=== PATIENT | male | born 1975 | race Caucasian/White ===

== ENCOUNTER 2019-09-17 22:24 | Inpatient (IN) | payer BC, SELFPAY ==
[2019-09-17 22:26] VITALS: BP 158/95; PULSE 126; RESP 20; TEMP 39.4; O2SAT 96; BMI 30.8
--- NOTE | 2019-09-17 22:42 | RAD_ITS ---
STUDY: X-RAY CHEST REASON FOR EXAM: Male, 43 years old. Cough and fever x 2 days TECHNIQUE: Frontal and lateral views of the chest. COMPARISON: None. FINDINGS: Normal lung volumes. Focal 8 cm opacity in the periphery of the right apex possibly with cavitary portion. This may be infiltrate or mass. CT with contrast is recommended. Lungs otherwise clear. No effusions. Normal size heart. Normal mediastinum and megan. Normal visualized pulmonary arteries. Normal visualized aortic arch and descending thoracic aorta. Normal visualized thoracic spine. Normal visualized ribs, clavicles, and shoulders. There is no demonstrated abnormality of the visualized soft tissue structures of the upper abdomen. RAD/Chest PA and Lateral IMPRESSION: 8 cm focal pulmonary opacity of the right apex possibly with cavitary portion. This may be infiltrate or mass. CT with contrast is recommended. Electronically Signed: Osmin Cintron MD at 23:34 EDT , Service support ,
--- NOTE | 2019-09-17 22:44 | ED.DCSUM_ITS ---
History of Present Illness Chief Complaint: Fever Informant: Patient Narrative: Stated he has had a cough for 6 days. Occasional productivity. No sick contacts. Finished amoxicillin a week ago for throat and ear infection given to him by urgent care. He longer has those symptoms. He denies any shortness of breath. He developed a fever yesterday. He took a fever reconstructive surgeon earlier today. Comes in for further evaluation. No coronavirus exposure. 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 Current severity is mild. Past Medical History - Allergies and Home Meds Allergies/Adverse Reactions: Allergies No Known Allergies Allergy (Verified 09/17/19 22:26) Primary Care Physician: Vishnu Singh DO [Primary Care Provider] - Prior records reviewed: Yes Past Medical History: None Surgical History: noncontributory Lives: With Family Smoking Status: Current every day smoker Alcohol: None Drugs: None Review of Systems General: Reports: Fever. Denies: Chills, Sweats Eyes: Denies: Visual changes - bilaterally, Diplopia ENT: Denies: Rhinorrhea, Sore throat Cardiovascular: Denies: Chest pain, Palpitations Respiratory: Reports: Cough. Denies: Dyspnea, Dyspnea on exertion Gastrointestinal: Denies: Abdominal pain, Nausea, Vomiting, Diarrhea, Melena, Hematochezia Genitourinary: Denies: Dysuria, Hematuria, Frequency Musculoskeletal: Denies: Back pain, Extremity Pain Skin: Denies: Rash, Wounds Neurological: Denies: Headache, Weakness, Numbness Physical Exam Vital Signs/Narrative: Vital Signs Temp Pulse Resp BP Pulse Ox 09/17/19 22:26 103.0 F H 126 H 20 H 158/95 H 96 General: Well nourished, Well developed, No Acute Distress Head: Normocephalic, Atraumatic Eyes: Perrl, EOMI ENT: Moist mucous membranes, No rhinorrhea Neck: Supple, Nontender Cardiovascular: Regular rate, Regular rhythm, No murmurs Respiratory: No distress, CTA bilaterally, Chest nontender Abdomen: Soft, Nontender, Nondistended, Normal bowel sounds Back: Nontender, Normal Inspection Extremities: Nontender, No edema Skin: Normal color, No rash Neurological: Alert, Oriented x3, Cranial nerves II-XII grossly intact, Normal Strength, Normal Sensation Psychological: Normal affect, Normal Mood Diagnostic/Tx/Re-eval - Medical Decision Making Patient is resting comfortably. Given Tylenol for his fever. Lab work and chest x-ray obtained. Coronavirus nasal swab obtained. Lab work shows a leukocytosis with left shift. Chest x-ray shows right upper lobe abscess suspected. CT with IV contrast obtained shows a large necrotic abscess in the right upper lobe of the lung. There is satellite infiltrate next to this. There is also a satellite infiltrate left upper lobe. Discussed with the radiologist. Patient given IV Unasyn for suspected lung abscess. Fever resolved with Tylenol. Patient given IV fluids. Discussed with the hospitalist ED Disposition - Plan for ED Patient: Disposition: Acute Care Hospital [facility] Diagnosis: Lung abscess, Pneumonia
[2019-09-17] MEDS: Acetaminophen 500 MG Tablet 1000 MG PO (22:57)
[2019-09-17 23:09] LABS: Absolute Lymphocyte Count 1.92 X10^3/uL (0.83-4.51); Absolute Neutrophil Count 16.2 X10^3/uL (2.0-7.7); Basophil# 0.07 X10^3/uL; Basophil% 0.4 % (0-1); Eosinophils% 0.5 % (0-5); Hematocrit 35.3 % (40-54); Hemoglobin 11.6 g/dL (13.0-16.5); Lymphocyte # 1.92 X10^3/ul (4.0); Lymphocyte % 9.8 % (19-41); Mean Corp Hgb Conc 32.9 g/dL (32-36); Mean Corpuscular Hgb 30.4 pg (27.0-32.0); Mean Corpuscular Volume 92.7 fL (80-94); Monocyte# 1.07 X10^3/uL; Monocyte% 5.5 % (0-10); NRBC Flagged by Analyzer 0 % (0-5); Neutrophil # 16.24 X10^3/uL (2.7-7.7); Neutrophil % 83.1 % (47-70); Platelet Count 540 K/mm3 (150-450); RBC Distribution Width CV 12.8 % (11.6-14.6); RBC Distribution Width SD 43.3 fl (35.1-43.9); Red Blood Count 3.81 M/mm3 (4.6-6.2); White Blood Count 19.5 K/mm3 (4.4-11.0)
[2019-09-17 23:21] LABS: Anion Gap 8 (5-15); BUN 13 mg/dL (7-18); BUN/Creat Ratio 10.7 RATIO (10-20); Calcium,Total 8.8 mg/dL (8.5-10.1); Chloride 102 mmol/L (98-107); Creatinine, Serum 1.21 mg/dL (0.70-1.30); EST Glomerular Filtration Rate 70 mL/min (>60); Est Glom Filt Rate - Afr Amer 84 mL/min (>60); Estimated Creatinine Clearance 87.29 ml/min; Glucose 200 mg/dL (74-106); Potassium 3.9 mmol/L (3.5-5.1); Sodium Level 136 mmol/L (136-145)
--- NOTE | 2019-09-17 23:58 | CT_ITS ---
We are attempting to reach an attending provider to discuss findings. An addendum with communication details will be sent when the communication is complete. STUDY: CT CHEST WITH CONTRAST REASON FOR EXAM: Male, 43 years old. FEVER, COUGH, NAUSEA, LUNG ABSCESS ON XRAY POSSIBLE RADIATION DOSAGE (If Supplied By Facility): CTDIvol = ( 16.00 ) mGy, DLP = ( 582.00 ) mGycm TECHNIQUE: Transaxial imaging was performed following intravenous administration of . Individualized dose optimization techniques were used for this CT. COMPARISON: None. FINDINGS: There is a small right pleural effusion. Emphysematous changes are present. No pneumothorax. Left upper lobe area of infiltrate. Multiple subcentimeter nodules within the right upper lobe adjacent to a large masslike lesion measuring 7.3 x 4.4 x 5 cm. There is some gas within this structure. There is a central low-attenuation collection measuring approximately 5.4 x 2.2 x 3.4 cm. The heart is within normal limits in size. There is a small pericardial effusion. Mediastinal and hilar lymph nodes measuring up to 1.1 cm in short axis. Thyroid is grossly unremarkable. Coronary artery calcifications. Aortic annular valve calcifications. No aortic aneurysm or dissection identified. Evaluation for pulmonary embolism would be limited on this study. There is no pulmonary embolism within the main pulmonary artery or right and left main pulmonary arteries. Further evaluation would be limited by bolus timing. There are multi-level degenerative changes of the thoracic spine. There is a enhancing lesion within the right hepatic lobe measuring 1.3 cm. This may represent hemangioma however recommend ultrasound for further evaluation. CT/Chest WITH Contrast IMPRESSION: There is a large necrotic appearing mass within the right upper lobe. There is a central fluid attenuation portion with gas concerning for abscess. A necrotic neoplasm cannot be excluded. Recommend further evaluation to exclude neoplastic process. There is additional infiltrate within the right upper lobe and to a lesser extent the left upper lobe. There is additional pulmonary nodules present. Again recommend a CT follow-up in 3-4 weeks to ensure resolution of these additional findings. Likely reactive mediastinal/hilar lymphadenopathy. Small right pleural effusion. Small pericardial effusion. There is a small enhancing structure within the right hepatic lobe. Incompletely characterized on this single phase study. May represent hemangioma. However ultrasound correlation is recommended. Other findings as above. Electronically Signed: Vinh Staley, at 1:32 EDT Tel , Service support ,
[2019-09-18] VITALS (8 sets, daily range): BP systolic 112–141; BP diastolic 72–82; PULSE 68–94; RESP 14–18; TEMP 37.2–38.4; O2SAT 93–97; BMI 28.9
--- NOTE | 2019-09-18 | SPU_PTH ---
PATIENT: BRUCE LLANOS LOC: ICU U#:[id number] AGE/SX: 43/M ROOM: [place] [address] RE09/18/[address]: Dr. Elias Joy MD : 1975 BED: 1 DIS: 09/19/2019 SPEC #: [id number] RECD: 09/18/19 09:09 STATUS: BAKARI REJamal #: [id number] JUAN: 09/18/19 00:[address]: Elias Joy DEPT: CYTOLOGY RECD BY: Aram Guadalupe ENTERED: 09/19/19 09:09 SP TYPE: Sputum Cy OTHR DR: DO Dr. Evelio Nielsen, MD Dr. Radhames Worrell Dr., MD Tissues: Sputum Procedures: Pap Stain (control) Special Stain Group II Special Stain Group I AFB Stain (control) Cytospin Fluid HEADER OPERATION: Not noted PRE-OP DIAGNOSIS: Pneumonia TISSUE SUBMITTED: Sputum for cytology DIAGNOSIS CYTOLOGY Sputum for cytology (smears and cytospin): Negative for malignant cells. Numerous organisms consistent with bacteria noted. Special stain for acid fast bacilli is negative for organisms; matched control is appropriate. See comment. SJ:gaurav 09/19/19 COMMENT The specimen predominantly consists of squamous cells. The specimen is limited in evaluation due to lack of histiocytes. CYTOLOGY STUDY Slides are reviewed. CYTOLOGY GROSS Received is <1 ml of yellow viscus fluid labeled with the patient's name and and designated per the requisition as sputum. Submitted for cytology preparation. / gaurav 09/19/19 TC:5 CPT: 84351, 98995
[2019-09-18] MEDS: 0.9% Normal Saline 1,000 ML 1000 ML IV ×2 (00:17→02:00)
--- NOTE | 2019-09-18 01:58 | HP.PCM_ITS ---
Problem List (1) Sepsis Status: Acute (2) Cavitary lesion of lung Status: Acute History of Present Illness Date of Admission: 09/18/19 Chief Complaint: Fever The patient is a 43 year old M with a significant history of tobacco abuse who presents emergency department with a chief complaint of fever. His temperature at home was 103.5 Fahrenheit. Associated with his symptoms is cough and nausea. His cough is productive for a pinkish sputum which he thinks may contain blood. He denies any shortness of breath. Further patient reports diaphoresis with night sweats. He denies any contacts with TB patient. Last time he traveled out of the country was about 10 years ago. At that time he traveled to the [facility]. Patient reports history of allergies 3 weeks ago for which he went to the urgent care. At that time he had bilateral ear infection; and post nasal drip. He was given antibiotics and steroids at that time. Chest x-ray was remarkable for focal pulmonary opacity with cavitary portion. Follow-up chest CT was also remarkable for large necrotic appearing mass within the right upper lobe and gas concerning for abscess. Past Medical History Medical History: Medical History (Last Updated 09/18/19 @ 06:[address] Lauri Bynum MD) Denies previous medical history Allergies No Known Allergies Allergy (Verified 09/17/19 22:26) Home Medications: Ambulatory Orders Medication Instructions Recorded NK 09/17/19 Surgical History: no surgical history Lives: With Family Smoking Status: Current every day smoker Alcohol: None Drugs: None - *Family History Maternal History Items: Hypertension Paternal History Items: Hypertension, - - Alcoholism Review of Systems Constitutional: Reports: Fever. Denies: Chills, Weight Change HEENT: Denies: Head Aches, Sinus Congestion, Sinus Drainage Cardiovascular: Denies: Chest Pain, Palpitations Respiratory: Reports: Cough, Sputum production. Denies: Shortness of breath at rest Gastrointestinal: Reports: Nausea. Denies: Abdominal Pain, Vomiting Genitourinary: Denies: Dysuria Musculoskeletal: Denies: Joint Pain, Joint Tenderness Skin: Denies: Rash, Wounds Neurological: Denies: Numbness, Tingling, Focal weakness Psychiatric: Denies: Anxiety, Depression, Homicidal Ideations, Suicidal Ideations Hematologic/ Lymphatic: Denies: Easy Bruising, Easy Bleeding VTE Information - Inpt Only VTE Present on Admission: No VTE Mechan Device Prophylaxis: None VTE Pharm Prophylaxis ordered?: Yes Patient Problems: Active and Suspected Problems Lung abscess (Acute) Pneumonia (Acute) Sepsis (Acute) Cavitary lesion of lung (Acute) - Physical Exam Vitals/I&O's: Vital Signs Temp Pulse Resp BP Pulse Ox 99.2 F H 126 H 20 H 123/81 H 97 09/18/19 00:16 09/17/19 22:26 09/17/19 22:26 09/18/19 00:16 09/18/19 00:16 Oxygen Delivery Method Room Air Weight: 103 kg Body Mass Index (BMI) 30.8 General: Alert, Oriented x3, Cooperative HEENT: Atraumatic, PERRLA, EOMI, Normocephalic Neck: Supple, No JVD, Negative Carotid Bruits Lungs: Clear to auscultation, Normal air movement Cardiovascular: Regular rate, Normal S1, Normal S2, No murmurs Abdomen: Bowel Sounds Present, Soft, Non Tender Extremities: No edema, Capillary Refill Less than 3 Seconds Skin: No rashes, No breakdown Musculoskeletal: No Tenderness to Palpation of Joints or Extremities Neurological: Cranial nerves II-XII grossly intact Psych/Mental Status: Normal Affect, Appropriate Laboratory Results 09/17/19 22:55: WBC 19.5 H, RBC 3.81 L, Hgb 11.6 L, Hct 35.3 L, MCV 92.7, MCH 30.4, MCHC 32.9, RDW Std Deviation 43.3, RDW Coeff of Rory 12.8, Plt Count 540 H, MPV 9.0, Immature Gran % (Auto) 0.700, Neut % (Auto) 83.1 H, Lymph % (Auto) 9.8 L, [place] Zandt % (Auto) 5.5, Eos % (Auto) 0.5, Baso % (Auto) 0.4, Absolute Neuts (auto) 16.2 H, Absolute Lymphs (auto) 1.92, Nucleated RBC % 0 09/17/19 22:55: Sodium 136, Potassium 3.9, Chloride 102, Carbon Dioxide 26.0, Anion Gap 8, BUN 13, Creatinine 1.21, Estim Creat Clear Calc 87.29, Est GFR (MDRD) Af Amer 84, Est GFR (MDRD) Non-Af 70, BUN/Creatinine Ratio 10.7, Glucose 200 H, Calcium 8.8 09/17/19 23:06: COVID-19 ([facility]BA) Not Detected Assessment/Plan All Active Problems Lung abscess (Acute) Pneumonia (Acute) Sepsis (Acute) Cavitary lesion of lung (Acute) The patient is a 43 year old M with a significant history of tobacco abuse who presents emergency department with a chief complaint of fever; productive cough possible containing blood; and a chest x-ray and CT chest findings of a pulmonary cavitation and abscess; also with SIRS criteria. Sepsis secondary to a cavitary lesion of the lungs. Recess criteria with a T-max of 103.5 at home and 103.0 Fahrenheit at the hospital. Heart rate of more than 90. White count of 19.5. Actual images of chest x-ray and CT of chest were reviewed. They showed large abscess. Different diagnoses include anaerobic infections; Mycobacterium infection; malignancy; Daniella's granulomatosis. We will get ANCA studies. Was given Unasyn at the emergency department. We will continue patient on Unasyn. Also add azithromycin. We will get a TB Gold and acid-fast bacilli of sputum. I will consult pulmonary status. Put in negative airflow room and institute airborne precautions. Covid test at the emergency department was negative. Chest x-ray CT chest does not look like covid Tobacco abuse Counseled Nicotine patch prescribed DVT prophylaxis Subcutaneous Lovenox. Inpatient E&M: 31618 Init Hosp L3
[2019-09-18 03:45] LABS: Absolute Lymphocyte Count 3.87 X10^3/uL (0.83-4.51); Absolute Neutrophil Count 15.6 X10^3/uL (2.0-7.7); Basophil# 0.08 X10^3/uL; Basophil% 0.4 % (0-1); Eosinophils% 0.5 % (0-5); Hemoglobin 10.9 g/dL (13.0-16.5); Lymphocyte # 3.87 X10^3/ul (4.0); Mean Corp Hgb Conc 32.1 g/dL (32-36); Mean Corpuscular Hgb 30.4 pg (27.0-32.0); Mean Corpuscular Volume 94.7 fL (80-94); Monocyte# 1.73 X10^3/uL; Monocyte% 8.1 % (0-10); NRBC Flagged by Analyzer 0 % (0-5); Neutrophil # 15.58 X10^3/uL (2.7-7.7); Neutrophil % 72.5 % (47-70); POSITIVE DIFFERENTIAL YES; Platelet Count 506 K/mm3 (150-450); RBC Distribution Width SD 44.9 fl (35.1-43.9); Red Blood Count 3.59 M/mm3 (4.6-6.2); White Blood Count 21.5 K/mm3 (4.4-11.0)
[2019-09-18 03:57] LABS: Anion Gap 9 (5-15); BUN 12 mg/dL (7-18); BUN/Creat Ratio 12.2 RATIO (10-20); Calcium,Total 8.4 mg/dL (8.5-10.1); Chloride 105 mmol/L (98-107); Creatinine, Serum 0.98 mg/dL (0.70-1.30); EST Glomerular Filtration Rate 89 mL/min (>60); Est Glom Filt Rate - Afr Amer 107 mL/min (>60); Estimated Creatinine Clearance 107.78 ml/min; Glucose 113 mg/dL (74-106); Potassium 4.1 mmol/L (3.5-5.1); Sodium Level 137 mmol/L (136-145)
[2019-09-18 04:01] LABS: International Normalized Ratio 1.3; Prothrombin Time (Protime)PT. 15.9 SECONDS (11.7-14.9)
[2019-09-18 04:03] LABS: Differential Indicated SCAN CRITERIA MET
[2019-09-18 04:26] LABS: Differential Comment SCANNED
[2019-09-18 04:43] LABS: Lactic Acid 0.5 mmol/L (0.4-1.9)
--- NOTE | 2019-09-18 06:00 | PCM.CONS.PUL ---
Reason for Consult Date of Consultation: 09/18/19 Reason for Consultation: Cavitary pneumonia History of Present Illness: The patient is a 43-year-old male, with a history as outlined below, who presented to the emergency department with complaints of a fever. The patient reports that approximately 3 weeks ago he was treated with Augmentin for 5 days for an upper respiratory infection/acute sinusitis. His symptoms subsequently improved. However, over the course of this last week, he went on to develop a fever once again, which worsened over the last 24 to 48 hours. The patient denies any recent sick contact exposure. 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 He is a smoker currently of 1 pack of cigarettes per day. He did report that he was previously coughing up purulent sputum, but this has since improved. He denies the presence of hemoptysis. The patient has never been incarcerated. He denies a history of IV drug use. He denies a history of recent travel or prior TB exposure. The patient does report that he was previously a heavy drinker and did at times have episodes where he blacked out. However, he states that he has been abstinent from alcohol for the last month. On presentation to the emergency department, the patient was noted to be febrile with a temperature of 103 ?F. He was also tachycardic and tachypneic. Laboratory evaluation revealed an elevated white blood cell count to 20,000. Platelet count was elevated to 540,000. Chemistry profile was unremarkable. Lactic acid was within normal limits. Coronavirus PCR was negative. Noncontrasted chest CT revealed a dense right upper lobe masslike consolidation with internal cavitation. The patient was subsequently placed on antimicrobials and admitted to the hospital for further management. Past Medical History Medical History: Medical History (Last Updated 09/18/19 @ 06:[address] Lauri Bynum MD) Denies previous medical history Allergies No Known Allergies Allergy (Verified 09/17/19 22:26) Home Medications: Ambulatory Orders Medication Instructions Recorded NK 09/17/19 Surgical History: noncontributory Lives: With Family Smoking Status: Current every day smoker Tobacco Use: Cigarettes Alcohol: None Drugs: None - *Family History Maternal History Items: Hypertension Paternal History Items: Hypertension, - - Alcoholism Review of Systems Constitutional: Reports: Chills, Fever, Night Sweats Eyes: Denies: Blurred vision, Double vision HEENT: Denies: Head Aches, Sinus Congestion, Sinus Drainage Cardiovascular: Denies: Chest Pain, Palpitations Respiratory: Reports: Cough, Sputum production. Denies: Hemoptysis, Shortness of Breath, Wheezing Gastrointestinal: Denies: Abdominal Pain, Nausea, Vomiting Genitourinary: Denies: Dysuria Musculoskeletal: Denies: Joint Pain, Joint Tenderness Skin: Denies: Rash, Wounds Neurological: Denies: Numbness, Tingling, Focal weakness Psychiatric: Denies: Anxiety, Depression, Homicidal Ideations, Suicidal Ideations Hematologic/ Lymphatic: Reports: Anemia Patient Problems: Active and Suspected Problems (Last Updated 09/18/19 @ 06:[address] Lauri Bynum MD) Lung abscess (Acute) Pneumonia (Acute) Sepsis (Acute) Cavitary lesion of lung (Acute) Objective: The patient's most recent lab work, culture data and imaging studies have all been personally reviewed. Blood cultures are currently pending. - Physical Exam Vitals/I&O's: Vital Signs Temp Pulse Resp BP Pulse Ox 99.1 F 72 18 136/81 H 96 09/18/19 03:15 09/18/19 03:15 09/18/19 03:15 09/18/19 03:15 09/18/19 03:15 Oxygen Delivery Method Room Air Weight: 213 lb 2.992 oz Body Mass Index (BMI) 28.9 Intake and Output for Last 24 Hours 09/16/19 09/17/19 09/18/19 23:59 23:59 23:59 Intake Total 2375.00 / 2375.00 Balance 2375.00 / 2375.00 General: Alert, Oriented x3, Cooperative, No apparent distress, - - Nontoxic in appearance HEENT: Atraumatic, PERRLA, Normocephalic Oral: Moist Mucosa Neck: Supple, No Nodes, Trachea Midline Lungs: Normal air movement, No rhonchi, No wheeze, No rales Cardiovascular: Regular rate, Regular Rhythm Abdomen: Bowel Sounds Present, Soft, Non Tender Extremities: No clubbing, No cyanosis, No edema Skin: No breakdown Musculoskeletal: No Tenderness to Palpation of Joints or Extremities, No Muscle Wasting Lymphatic: No Cervical, Supraclavicular, or Inguinal Adenopathy Neurological: Cranial nerves II-XII grossly intact, Neuro grossly intact Psych/Mental Status: Alert and oriented to time, place, person, mood and affect Labs (Last 48 Hours) 09/17/19 09/17/19 09/17/19 22:55 22:55 23:06 WBC 19.5 H RBC 3.81 L Hgb 11.6 L Hct 35.3 L MCV 92.7 MCH 30.4 MCHC 32.9 RDW Std Deviation 43.3 RDW Coeff of Rory 12.8 Plt Count 540 H MPV 9.0 Immature Gran % (Auto) 0.700 Neut % (Auto) 83.1 H Lymph % (Auto) 9.8 L Grayson % (Auto) 5.5 Eos % (Auto) 0.5 Baso % (Auto) 0.4 Absolute Neuts (auto) 16.2 H Absolute Lymphs (auto) 1.92 Nucleated RBC % 0 Differential Comment Diff Path Review PT INR Sodium 136 Potassium 3.9 Chloride 102 Carbon Dioxide 26.0 Anion Gap 8 BUN 13 Creatinine 1.21 Estim Creat Clear Calc 87.29 Est GFR (MDRD) Af Amer 84 Est GFR (MDRD) Non-Af 70 BUN/Creatinine Ratio 10.7 Glucose 200 H Hemoglobin A1c Lactic Acid Calcium 8.8 c-ANCA Antibody p-ANCA Antibody COVID-19 ([facility]BA) Not Detected MRSA (PCR) 09/18/19 09/18/19 09/18/19 03:30 03:30 03:30 WBC 21.5 H RBC 3.59 L Hgb 10.9 L Hct 34.0 L MCV 94.7 H MCH 30.4 MCHC 32.1 RDW Std Deviation 44.9 H RDW Coeff of Rory 13.0 Plt Count 506 H MPV 9.0 Immature Gran % (Auto) 0.500 Neut % (Auto) 72.5 H Lymph % (Auto) 18.0 L Grayson % (Auto) 8.1 Eos % (Auto) 0.5 Baso % (Auto) 0.4 Absolute Neuts (auto) 15.6 H Absolute Lymphs (auto) 3.87 Nucleated RBC % 0 Differential Comment SCANNED Diff Path Review May foll PT INR Sodium Potassium Chloride Carbon Dioxide Anion Gap BUN Creatinine Estim Creat Clear Calc Est GFR (MDRD) Af Amer Est GFR (MDRD) Non-Af BUN/Creatinine Ratio Glucose Hemoglobin A1c Lactic Acid 0.5 Calcium c-ANCA Antibody Pending p-ANCA Antibody Pending COVID-19 (ALBA) MRSA (PCR) 09/18/19 09/18/19 09/18/19 03:30 03:30 03:30 WBC RBC Hgb Hct MCV MCH MCHC RDW Std Deviation RDW Coeff of Rory Plt Count MPV Immature Gran % (Auto) Neut % (Auto) Lymph % (Auto) Grayson % (Auto) Eos % (Auto) Baso % (Auto) Absolute Neuts (auto) Absolute Lymphs (auto) Nucleated RBC % Differential Comment Diff Path Review PT 15.9 H INR 1.3 Sodium 137 Potassium 4.1 Chloride 105 Carbon Dioxide 23.0 Anion Gap 9 BUN 12 Creatinine 0.98 Estim Creat Clear Calc 107.78 Est GFR (MDRD) Af Amer 107 Est GFR (MDRD) Non-Af 89 BUN/Creatinine Ratio 12.2 Glucose 113 H Hemoglobin A1c Pending Lactic Acid Calcium 8.4 L c-ANCA Antibody p-ANCA Antibody COVID-19 (ALBA) MRSA (PCR) 09/18/19 03:43 WBC RBC Hgb Hct MCV MCH MCHC RDW Std Deviation RDW Coeff of Rory Plt Count MPV Immature Gran % (Auto) Neut % (Auto) Lymph % (Auto) Grayson % (Auto) Eos % (Auto) Baso % (Auto) Absolute Neuts (auto) Absolute Lymphs (auto) Nucleated RBC % Differential Comment Diff Path Review PT INR Sodium Potassium Chloride Carbon Dioxide Anion Gap BUN Creatinine Estim Creat Clear Calc Est GFR (MDRD) Af Amer Est GFR (MDRD) Non-Af BUN/Creatinine Ratio Glucose Hemoglobin A1c Lactic Acid Calcium c-ANCA Antibody p-ANCA Antibody COVID-19 (ALBA) MRSA (PCR) Pending Clinical Impression(s) from Imaging Studies Chest X-Ray 09/17/19 22:42 IMPRESSION: 8 cm focal pulmonary opacity of the right apex possibly with cavitary portion. This may be infiltrate or mass. CT with contrast is recommended. Electronically Signed: Osmin Cintron MD at 23:34 EDT , Service support , Chest CT 09/17/19 23:58 IMPRESSION: There is a large necrotic appearing mass within the right upper lobe. There is a central fluid attenuation portion with gas concerning for abscess. A necrotic neoplasm cannot be excluded. Recommend further evaluation to exclude neoplastic process. There is additional infiltrate within the right upper lobe and to a lesser extent the left upper lobe. There is additional pulmonary nodules present. Again recommend a CT follow-up in 3-4 weeks to ensure resolution of these additional findings. Likely reactive mediastinal/hilar lymphadenopathy. Small right pleural effusion. Small pericardial effusion. There is a small enhancing structure within the right hepatic lobe. Incompletely characterized on this single phase study. May represent hemangioma. However ultrasound correlation is recommended. Other findings as above. Electronically Signed: Vinh Staley, at 1:32 EDT Tel , Service support , ADDENDUM: 09/18/19 0143 IMPRESSION: There is a large necrotic appearing mass within the right upper lobe. There is a central fluid attenuation portion with gas concerning for abscess. A necrotic neoplasm cannot be excluded. Recommend further evaluation to exclude neoplastic process. There is additional infiltrate within the right upper lobe and to a lesser extent the left upper lobe. There is additional pulmonary nodules present. Again recommend a CT follow-up in 3-4 weeks to ensure resolution of these additional findings. Likely reactive mediastinal/hilar lymphadenopathy. Small right pleural effusion. Small pericardial effusion. There is a small enhancing structure within the right hepatic lobe. Incompletely characterized on this single phase study. May represent hemangioma. However ultrasound correlation is recommended. Other findings as above. N.B. : The above information has been verbally conveyed by Vinh Staley to Elias Bradford MD, on 09/18/2019 01:36:03 (ET). Electronically Signed: Vinh Staley, at 1:32 EDT Tel , Service support , Current Medications Acetaminophen (Tylenol) 650 mg PO Q6H PRN PRN PRN Reason: Pain Score 1-10/Temp > 100.7 F Albuterol Sulfate (Ventolin Aerosols) 2.5 mg INHALATION Q2H PRN PRN PRN Reason: Shortness of Breath/Wheezing Dextrose (D50w Syringe) 0 gm IV X1 PRN; Protocol PRN Reason: Hypoglycemia Enoxaparin Sodium (Lovenox) 40 mg SC DAILY [facility] Glucagon () 1 mg IM .X1 PRN PRN Reason: Hypoglycemia Guaifenesin (Mucinex) 1,200 mg PO BID [facility] Ampicillin Sodium/Sulbactam (Sodium 3 gm/ Sodium Chloride) 112 mls @ 150 mls/hr IV Q6 [facility] Last Admin: 09/18/19 05:12 Dose: 150 mls/hr Documented by: Azithromycin 500 mg/ Dextrose 255 mls @ 250 mls/hr IV Q24 [facility] Last Infusion: 09/18/19 04:41 Dose: Infused Documented by: Sodium Chloride () 250 mls @ 15 mls/hr IV .[id number] PRN PRN Reason: Saline Flush Last Infusion: 09/18/19 05:12 Dose: 0 mls/hr Documented by: Sodium Chloride () 250 mls @ 15 mls/hr IV .[id number] PRN PRN Reason: Additional IVPB Infusion Melatonin (Melatonin) 3 mg PO QHS PRN PRN PRN Reason: INSOMNIA Nicotine (Nicoderm Cq (Pbkc)) 21 mg TRANSDERM. DAILY [facility] Last Admin: 09/18/19 03:54 Dose: 21 mg Documented by: Ondansetron HCl (Zofran) 4 mg IV Q8H PRN PRN PRN Reason: NAUSEA/VOMITING Sodium Chloride () 10 - 40 ml IV UD PRN PRN Reason: SALINE FLUSH Assessment/Plan All Active Problems (Last Updated 09/18/19 @ 06:[address] Lauri Bynum MD) Lung abscess (Acute) Pneumonia (Acute) Sepsis (Acute) Cavitary lesion of lung (Acute) RECOMMENDATIONS: 1. Recommend empiric broad-spectrum antimicrobial coverage for now. 2. Obtain and send sputum for culture, if feasible. 3. Continue as needed bronchodilator therapy. 4. Obtain infectious diseases consultation. 5. Recommend repeat chest imaging be completed after the patient has finished his antibiotic treatment course. 6. Outpatient pulmonary follow-up is strongly recommended. IMPRESSIONS: 1. Sepsis secondary to cavitary pneumonia The patient presented to the hospital with a one-week course of fevers and cough productive of sputum. Subsequent chest imaging did reveal evidence of a right upper lobe cavitary consolidation. The patient has no high risk TB risk factors. However, the patient was placed in precautions by the admitting hospitalist and sputum for AFB were ordered. The patient does report a history of alcohol dependency, but states that he has been abstinent for approximately 1 month. It is certainly plausible that the right upper lobe changes are related to aspiration in the setting of the patient's history of alcohol dependency. Malignancy would also be another consideration, in light of the patient's smoking history. At this time, I would recommend continued empiric antimicrobials. Infectious diseases should be consulted to assist with antimicrobial management and duration of treatment. I suspect the patient will likely require a prolonged treatment course. I would suggest that after completing his antibiotic treatment course that repeat chest imaging be obtained. If the lesion itself is not improving, consideration can be given to biopsy. 2. History of tobacco dependency/prior alcohol dependency The patient does have an extensive smoking history along with a prior history of alcohol dependency. The patient reports that he has been abstinent from alcohol for approximately 1 month. The patient will be continued on nicotine replacement therapy while admitted to the hospital. I personally spent 5 minutes discussing the deleterious effects of continued tobacco use with the patient, including modalities which could be utilized to achieve a smoke-free lifestyle. This note was generated with [employer] dictation software. It may contain incorrect words, spelling, and punctuation that were not noted in checking the note before signing. Inpatient E&M: 85860 Init Hosp L3 - Behavior Interventions Behavior Intervention: 07145 Smoking Cessation 3-10 min
[2019-09-18 07:04] LABS: Acid Fast Stain SEE PATHOLOGY REPORT
[2019-09-18 07:15] LABS: M R Staph aureus DNA By PCR Negative (Negative); Probe Check PASS; Specimen Processing Control PASS
[2019-09-18] MEDS: Enoxaparin 40 MG/0.4 ML Syringe SC (08:37)
[2019-09-18 08:52] LABS: Hemoglobin A1c 5.9 % (3.8-5.6)
[2019-09-18] MEDS: Acetaminophen 325 MG Tablet 650 MG PO ×2 (09:36→16:56)
[2019-09-18] MEDS: guaiFENesin 1,200 MG Tablet 1200 MG PO ×2 (09:36→21:05)
--- NOTE | 2019-09-18 15:11 | PCM.RX.CS ---
Consult Pharmacy has been consulted to manage selected antiobiotic: Vancomycin Type of Consult: New start Suspected Infection: Sepsis, Pneumonia Prior Doses of Antibiotics Received/Current Regimen: Loading dose of 2gm iv given 09.18.19 @0837. Labs: Sodium 137 mmol/L (136-145) 09/18/19 03:30 Potassium 4.1 mmol/L (3.5-5.1) 09/18/19 03:30 Chloride 105 mmol/L (98-107) 09/18/19 03:30 Carbon Dioxide 23.0 mmol/L (21.0-32.0) 09/18/19 03:30 Anion Gap 9 (5-15) 09/18/19 03:30 BUN 12 mg/dL (7-18) 09/18/19 03:30 Creatinine 0.98 mg/dL (0.70-1.30) 09/18/19 03:30 Est GFR (MDRD) Af Amer 107 mL/min (>60) 09/18/19 03:30 Est GFR (MDRD) Non-Af 89 mL/min (>60) 09/18/19 03:30 BUN/Creatinine Ratio 12.2 RATIO (10-20) 09/18/19 03:30 Glucose 113 mg/dL (74-106) H 09/18/19 03:30 Microbiology: Microbiology 09/18/19 06:45 Sputum, Expectorated/Coughed Gram Stain - Final 09/18/19 06:50 Urine, Random Streptococcus pneumoniae Antigen (M - Final 09/18/19 06:50 Urine, Random Legionella Antigen - Final Weight used for dosin kg Estimated Creatinine Clearance: >100ml/min Goal Trough: 15-20 mcg/mL Pharmacy Plan for Drug Dosing: Will begin 1250mg iv q8h starting 8 hrs aft loading dose of 2g. Goal trough will be 15-20mcg/ml. Trough level ordered for 09.19.19 @0730 before 4th total dose of vancomycin. Pharmacy Service will continue to monitor and adjust dosing as required. Follow-Up Labs: Trough Vancomycin - 09.18. @0730 before 0800 dose
[2019-09-19 01:01] VITALS: BP 122/73; PULSE 92; RESP 18; TEMP 38.3; O2SAT 98
[2019-09-19] MEDS: Acetaminophen 325 MG Tablet 650 MG PO ×2 (01:01→13:48)
[2019-09-19 04:55] VITALS: BP 121/86; PULSE 87; RESP 16; TEMP 37.9; O2SAT 97
--- NOTE | 2019-09-19 06:24 | PCM.PN.PUL ---
Patient Problems: Active and Suspected Problems (Last Updated 09/18/19 @ 06:[address] Lauri Bynum MD) Lung abscess (Acute) Pneumonia (Acute) Sepsis (Acute) Cavitary lesion of lung (Acute) Subjective: Patient did okay overnight. Patient is reporting subjective improvement in overall condition. Patient states his cough is less productive and he feels like he has more energy today. Patient is denying any chest pain. Patient did spike a fever overnight, but is tolerated room air and has remained hemodynamically stable. Patient does remain in TB precautions. - Physical Exam Vitals/I&O's: Vital Signs Temp Pulse Resp BP Pulse Ox 37.9 C H 87 16 121/86 H 97 09/19/19 04:55 09/19/19 04:55 09/19/19 04:55 09/19/19 04:55 09/19/19 04:55 Oxygen Delivery Method Room Air Weight: 96.7 kg Body Mass Index (BMI) 28.9 Intake and Output for Last 24 Hours 09/17/19 09/18/19 09/19/19 23:59 23:59 23:59 Intake Total 4179.50 / 4554.50 1164.5 / 1164.5 Output Total 300 / 300 Balance 3879.50 / 4254.50 1164.5 / 1164.5 General: Alert, Oriented x3, Cooperative, No apparent distress, Well developed, Well nourished, - - No conversational dyspnea. HEENT: Atraumatic, PERRLA, EOMI, Normocephalic, - - No scleral icterus or injection noted Oral: Moist Mucosa, No Gingival or Mucosal Lesions/ Ulcerations, - - Fair dentition Neck: Supple, No JVD, No Nodes, Trachea Midline Lungs: No rhonchi, No wheeze, No rales, Diminished Cardiovascular: Regular rate, Regular Rhythm, Normal S1, Normal S2, No murmurs, No rub noted, No Gallop Abdomen: Bowel Sounds Present, Soft, Non Tender, Non-Distended Extremities: No clubbing, No cyanosis, No edema, Capillary Refill Less than 3 Seconds Skin: No rashes, No breakdown Musculoskeletal: No Tenderness to Palpation of Joints or Extremities Lymphatic: No Cervical, Supraclavicular, or Inguinal Adenopathy Neurological: Cranial nerves II-XII grossly intact, Neuro grossly intact, Motor Exam 5/5 strength throughout Psych/Mental Status: Alert and oriented to time, place, person, mood and affect Microbiology Past 72 Hours 09/18/19 06:45 Sputum, Expectorated/Coughed Gram Stain - Final 09/18/19 06:50 Urine, Random Streptococcus pneumoniae Antigen (M - Final 09/18/19 06:50 Urine, Random Legionella Antigen - Final Laboratory Results 09/18/19 03:30: Hemoglobin A1c 5.9 H 09/18/19 03:43: MRSA (PCR) Negative 09/18/19 06:45: Acid Fast Stain Pending Current Medications Acetaminophen (Tylenol) 650 mg PO Q6H PRN PRN PRN Reason: Pain Score 1-10/Temp > 100.7 F Last Admin: 09/19/19 01:01 Dose: 650 mg Documented by: Albuterol Sulfate (Ventolin Aerosols) 2.5 mg INHALATION Q2H PRN PRN PRN Reason: Shortness of Breath/Wheezing Dextrose (D50w Syringe) 0 gm IV X1 PRN; Protocol PRN Reason: Hypoglycemia Enoxaparin Sodium (Lovenox) 40 mg SC DAILY [facility] Last Admin: 09/18/19 08:37 Dose: 40 mg Documented by: Glucagon () 1 mg IM .X1 PRN PRN Reason: Hypoglycemia Guaifenesin (Mucinex) 1,200 mg PO BID [facility] Last Admin: 09/18/19 21:05 Dose: 1,200 mg Documented by: Sodium Chloride () 250 mls @ 15 mls/hr IV .[id number] PRN PRN Reason: Saline Flush Last Infusion: 09/19/19 03:19 Dose: Infused Documented by: Sodium Chloride () 250 mls @ 15 mls/hr IV .[id number] PRN PRN Reason: Additional IVPB Infusion Vancomycin IV Pharmacy to Dose (1 ea/ Sodium Chloride) 500 mls @ 250 mls/hr IV X1 PRN; Protocol PRN Reason: Rx to Dose Piperacillin Sod/Tazobactam (Sod 3.375 gm/ Sodium Chloride) 50 mls @ 12.5 mls/hr IV Q8 [facility] Last Admin: 09/19/19 04:57 Dose: 12.5 mls/hr Documented by: Vancomycin HCl 1,250 mg/ (Sodium Chloride) 275 mls @ 167 mls/hr IV Q8H [facility] Last Infusion: 09/19/19 01:46 Dose: Infused Documented by: Melatonin (Melatonin) 3 mg PO QHS PRN PRN PRN Reason: INSOMNIA Nicotine (Nicoderm Cq (Pbkc)) 21 mg TRANSDERM. DAILY [facility] Last Admin: 09/18/19 03:54 Dose: 21 mg Documented by: Ondansetron HCl (Zofran) 4 mg IV Q8H PRN PRN PRN Reason: NAUSEA/VOMITING Sodium Chloride () 10 - 40 ml IV UD PRN PRN Reason: SALINE FLUSH Medical Necessity - Tobacco Use Smoking Status: Current every day smoker Tobacco Use: Cigarettes Assessment/Plan All Active Problems (Last Updated 09/18/19 @ 06:[address] Lauri Bynum MD) Lung abscess (Acute) Pneumonia (Acute) Sepsis (Acute) Cavitary lesion of lung (Acute) RECOMMENDATIONS: 1. Recommend empiric broad-spectrum antimicrobial coverage for now. 2. Await infectious disease evaluation 3. Continue as needed bronchodilator therapy. 4. Anticipate repeat CT scan in 6 to 8 weeks 5. Walking oximetry prior to discharge 6. Outpatient pulmonary follow-up is strongly recommended. IMPRESSIONS: 1. Sepsis secondary to cavitary pneumonia Low clinical suspicion for tuberculosis as he does not have any high risk TB factors and his history. Radiologic appearance of bacterial abscess. Patient is responding to broad-spectrum antibiotics. CBC will be ordered today. Await infectious disease recommendations. Anticipate protracted antimicrobial course. Possible discharge later today after ID evaluation. Would hold on transfer for now until ID consult is completed. Sputum culture shows multiple organisms, but no positive culture thus far. Unclear if bronchoscopy will be necessary. 2. History of tobacco dependency/prior alcohol dependency The patient does have an extensive smoking history along with a prior history of alcohol dependency. The patient reports that he has been abstinent from alcohol for approximately 1 month. The patient will be continued on nicotine replacement therapy while admitted to the hospital. Did stress to the patient the importance of smoking cessation. Patient will need to be advised to Flagyl is recommended in a p.o. status given his history of alcoholism. Inpatient E&M: 71921 Subs Hosp L2
[2019-09-19 07:12] LABS: Absolute Lymphocyte Count 2.87 X10^3/uL (0.83-4.51); Absolute Neutrophil Count 15.4 X10^3/uL (2.0-7.7); Basophil# 0.05 X10^3/uL; Basophil% 0.3 % (0-1); Eosinophil# 0.13 X10^3/uL; Eosinophils% 0.7 % (0-5); Hematocrit 31.7 % (40-54); Hemoglobin 10.3 g/dL (13.0-16.5); Lymphocyte # 2.87 X10^3/ul (4.0); Lymphocyte % 14.5 % (19-41); Mean Corp Hgb Conc 32.5 g/dL (32-36); Mean Corpuscular Hgb 30.2 pg (27.0-32.0); Mean Platelet Vol. 9.2 fl (6.2-12.0); NRBC Flagged by Analyzer 0 % (0-5); Neutrophil # 15.44 X10^3/uL (2.7-7.7); Neutrophil % 77.7 % (47-70); Platelet Count 507 K/mm3 (150-450); RBC Distribution Width CV 13.1 % (11.6-14.6); RBC Distribution Width SD 44.3 fl (35.1-43.9); Red Blood Count 3.41 M/mm3 (4.6-6.2); White Blood Count 19.9 K/mm3 (4.4-11.0)
[2019-09-19 07:36] LABS: Vancomycin, Trough Level 17.2 ug/mL (5.0-15.0)
[2019-09-19] MEDS: guaiFENesin 1,200 MG Tablet 1200 MG PO (08:11)
[2019-09-19] MEDS: Enoxaparin 40 MG/0.4 ML Syringe SC (08:11)
[2019-09-19 08:19] VITALS: BP 121/74; PULSE 90; RESP 16; TEMP 37.2; O2SAT 98
--- NOTE | 2019-09-19 09:03 | PCM.RX.CS ---
Consult Pharmacy has been consulted to manage selected antiobiotic: Vancomycin Type of Consult: Follow-up Suspected Infection: Sepsis, Pneumonia Prior Doses of Antibiotics Received/Current Regimen: Currently on 1250mg IV q8h Labs: Sodium 137 mmol/L (136-145) 09/18/19 03:30 Potassium 4.1 mmol/L (3.5-5.1) 09/18/19 03:30 Chloride 105 mmol/L (98-107) 09/18/19 03:30 Carbon Dioxide 23.0 mmol/L (21.0-32.0) 09/18/19 03:30 Anion Gap 9 (5-15) 09/18/19 03:30 BUN 12 mg/dL (7-18) 09/18/19 03:30 Creatinine 0.98 mg/dL (0.70-1.30) 09/18/19 03:30 Est GFR (MDRD) Af Amer 107 mL/min (>60) 09/18/19 03:30 Est GFR (MDRD) Non-Af 89 mL/min (>60) 09/18/19 03:30 BUN/Creatinine Ratio 12.2 RATIO (10-20) 09/18/19 03:30 Glucose 113 mg/dL (74-106) H 09/18/19 03:30 Vancomycin Trough 17.2 ug/mL (5.0-15.0) H 09/19/19 07:00 Microbiology: Microbiology 09/18/19 06:45 Sputum, Expectorated/Coughed Gram Stain - Final 09/18/19 06:50 Urine, Random Streptococcus pneumoniae Antigen (M - Final 09/18/19 06:50 Urine, Random Legionella Antigen - Final Weight used for dosin kg Estimated Creatinine Clearance: >100ml/min Goal Trough: 15-20 mcg/mL Pharmacy Plan for Drug Dosing: The vancomycin trough drawn before this morning's dose came back as 17.2mg/L. This is within goal range of 15-20. Will recheck trough again in 4 days. Pharmacy Service will continue to monitor and adjust dosing as required. Follow-Up Labs: Trough Vancomycin Labs to be done on [date and time ordered]: 09/23/19 07:30
--- NOTE | 2019-09-19 09:04 | CASEMGMT ---
RN CM Assessment Note Diagnosis: Lung Abcess, Sepsis secondary to caviatry lesion of lung. CT showed large abcess, R/O TB Intro role of CM to patient via phone, Demographics verified. Pt is in TB isolation. Pt is awake, alert, able to participate in assessment. States he is independent, no care needs @ home, works, drives and has no difficulty with physician f/u or getting prescriptions on dc. ID to see pt and evaluated for po/IV antibiotics on dc. Pt was aware he may not go home on just pills. RN CM let pt know if IV antibiotics were needed, RN CM would assist with setting up home health, and IV infusion company. Pt states his mo Fish (who is an EMT) would be able to assist him with IV antibiotics if needed. PCP: Dr. Vishnu Singh Specialists: pt denies specialist prior to admission. Dr. Thacker, ID consult Insurance: [place] Preferred Pharmacy: [facility] Prescription Benefit: yes LNOK: Mother, Jigna Esquivel Living Arrangements: Lives independently. Denies care needs. Tranportation: Drives but mo can drive if needed DME: none HHC: May need HHC/Infusion Co. if IV antibiotics are needed. [facility] comapnies reviewed on [place] site for [facility] prefix: Home Care: [facility], [facility], [facility], [facility], [facility]. Infusion Co: [facility], [facility], [facility], [facility] Patient DC Goals: Home DC Plan: anticipate Home on dc. ID consult pending- possible need for IV antibiotics. CM available for discharge planning coordination. Contact CM for any concerns/needs that may arise. Eduardo CHRISTYN RN ACM
[2019-09-19 13:47] VITALS: BP 127/73; PULSE 95; RESP 18; TEMP 38.2; O2SAT 97
--- NOTE | 2019-09-19 15:47 | CON.PCM_ITS ---
Problem List (1) Lung abscess Status: Acute Reason for Consult: abscess Consulted by: Dr. 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 Quit etoh a month ago. Had dental infection in wisdom tooth a year ago, did not get it removed. No tooth problems recently. Denies h/o aspiration. No prior PPD. No known TB exposures. Denies foreign travel, no contact with inmates/recent immigrants/homeless population. Was given augmentin 3-4 weeks ago which helped, then sx worsened once that was complete. Came to ED, admitted on vanc/zosyn after dose of unasyn. CT shows large RUL cavitary abscess. Feeling much better. Full ROS performed and neg except as noted above. No hemoptysis. - Medical History Allergies/Adverse Reactions: Allergies No Known Allergies Allergy (Verified 09/17/19 22:26) Home Medications: Ambulatory Orders Medication Instructions Recorded NK 09/17/19 - Social History Tobacco Use: cigarettes SMOKING STATUS:: Current every day smoker Alcohol Use: none Drug Use: marijuana Vital Signs Temp Pulse Resp BP Pulse Ox 100.7 F H 95 18 127/73 H 97 09/19/19 13:47 09/19/19 13:47 09/19/19 13:47 09/19/19 13:47 09/19/19 13:47 Oxygen Delivery Method Room Air Weight: 96.7 kg Body Mass Index (BMI) 28.9 Microbiology Past 72 Hours 09/18/19 06:45 Gram Stain - Final Sputum, Expectorated/Coughed Respiratory Culture - Preliminary Appears to be normal respiratory hans. Further studies to follow. 09/18/19 06:50 Streptococcus pneumoniae Antigen (M - Final Urine, Random 09/18/19 06:50 Legionella Antigen - Final Urine, Random Laboratory Tests Past 24 Hrs 09/18/19 09/19/19 09/19/19 06:45 07:00 07:00 WBC 19.9 H RBC 3.41 L Hgb 10.3 L Hct 31.7 L MCV 93.0 MCH 30.2 MCHC 32.5 RDW Std Deviation 44.3 H RDW Coeff of Rory 13.1 Plt Count 507 H MPV 9.2 Immature Gran % (Auto) 0.800 Neut % (Auto) 77.7 H Lymph % (Auto) 14.5 L Norton % (Auto) 6.0 Eos % (Auto) 0.7 Baso % (Auto) 0.3 Absolute Neuts (auto) 15.4 H Absolute Lymphs (auto) 2.87 Nucleated RBC % 0 Vancomycin Trough 17.2 H Acid Fast Stain SEE PATHOLOGY REPORT - Other Studies Radiology: [] reviewed Other Studies: [] Route of nutrition/ use of supplements: [] Nutritional Intake: [] IV Site: [] Toth Catheter: [] - Physical Exam General: Alert, Oriented x3, Cooperative, No apparent distress HEENT: Atraumatic, PERRLA, EOMI Neck: Supple, No Nodes Lungs: Clear to auscultation, Normal air movement Cardiovascular: Regular rate, Regular Rhythm, No murmurs Abdomen: Soft, Non Tender, Non-Distended Extremities: No edema Skin: No rashes IV Site: Peripheral, without redness Musculoskeletal: No Tenderness to Palpation of Joints or Extremities Neurological: Cranial nerves II-XII grossly intact - Assessment/Plan Antibiotics: [] Assessment/Plan: [] Active and Suspected Problems (Last Updated 09/18/19 @ 06:[address] Lauri Bynum MD) Lung abscess (Acute) Pneumonia (Acute) Sepsis (Acute) Cavitary lesion of lung (Acute) Lung abscess - recommend he call dentist for eval given h/o wisdom tooth infection. AFB smear neg x1. Low suspicion for TB at this point, particularly given his quick response with abx. Ok for d/c home on 30 days of po bactrim and augmentin. ID followup in 1-2 weeks. Will need repeat imaging prior to stopping abx. Will follow, thank you, d/w nursing and Dr. Joy.
--- NOTE | 2019-09-19 16:35 | DCINST_ITS ---
- Discharge Diagnoses Current Active Problems: Current Active and Chronic Problems (Last Updated 09/18/19 @ 06:[address] Lauri Bynum MD) Lung abscess (Acute) Pneumonia (Acute) Sepsis (Acute) Cavitary lesion of lung (Acute) You will use the following diet at home:: Regular Your food should be the consistency of: Regular Your liquids should be the consistency of: Regular/Thin Discharge Activity: Return to Normal Activity Call your doctor if you observe: Fever of 101 or Higher, Shortness of breath, Dizziness, Fainting spells, Swelling in the ankles, Chest pain, Increased palpitations (irregular heartbeat) Additional Instructions: COVID testing was negative Allergies/Adverse Reactions: Allergies No Known Allergies Allergy (Verified 09/17/19 22:26) Medications to take at Discharge Amoxicillin/Potassium Clav [Augmentin 875-125 Tablet] 1 ea PO BID #60 tab 09/19/19 Smz/Tmp Ds [Bactrim Ds] 1 tab PO BID #60 tab 09/19/19 The following prescriptions were given: Amoxicillin/Potassium Clav [Augmentin 875-125 Tablet] 1 ea PO BID #60 tab Transmission Status: Received by [id number] Smz/Tmp Ds [Bactrim Ds] 1 tab PO BID #60 tab Transmission Status: Received by [id number] Primary Care Physician: Vishnu Singh DO [Primary Care Provider] - Please follow up with your Primary Care Physician in: 3-5 days Test Results: Test results from this visit will be discussed in further detail at your follow- up appointment, if applicable. Please Follow Up With: Radhames Thacker MD When: 1-2 weeks
--- NOTE | 2019-09-19 16:40 | PCM.DC.SUM ---
Discharge Date and Diagnosis - Problem List Patient Problems: Active and Suspected Problems (Last Updated 09/18/19 @ 06:[address] Lauri Bynum MD) Lung abscess (Acute) Pneumonia (Acute) Sepsis (Acute) Cavitary lesion of lung (Acute) Date of Admission: 09/18/19 Date of Discharge: 09/19/19 - Primary Discharge Diagnosis Acute Problems: Active Problems (Last Updated 09/18/19 @ 06:[address] Lauri Bynum MD) Lung abscess (Acute) Pneumonia (Acute) Sepsis (Acute) Cavitary lesion of lung (Acute) Hospital Course and Treatment Imaging Results: CXR: IMPRESSION: 8 cm focal pulmonary opacity of the right apex possibly with cavitary portion. This may be infiltrate or mass. CT with contrast is recommended. CT Chest: IMPRESSION: There is a large necrotic appearing mass within the right upper lobe. There is a central fluid attenuation portion with gas concerning for abscess. A necrotic neoplasm cannot be excluded. Recommend further evaluation to exclude neoplastic process. There is additional infiltrate within the right upper lobe and to a lesser extent the left upper lobe. There is additional pulmonary nodules present. Again recommend a CT follow-up in 3-4 weeks to ensure resolution of these additional findings. Likely reactive mediastinal/hilar lymphadenopathy. Small right pleural effusion. Small pericardial effusion. There is a small enhancing structure within the right hepatic lobe. Incompletely characterized on this single phase study. May represent hemangioma. However ultrasound correlation is recommended. Other findings as above. DIAGNOSIS CYTOLOGY Sputum for cytology (smears and cytospin): Negative for malignant cells. Numerous organisms consistent with bacteria noted. Special stain for acid fast bacilli is negative for organisms; matched control is appropriate. Consults: Pulmonology ID Operations: None Procedures: None Summary of Care Provided: Per HPI: The patient is a 43 year old M with a significant history of tobacco abuse who presents emergency department with a chief complaint of fever. His temperature at home was 103.5 Fahrenheit. Associated with his symptoms is cough and nausea. His cough is productive for a pinkish sputum which he thinks may contain blood. He denies any shortness of breath. Further patient reports diaphoresis with night sweats. He denies any contacts with TB patient. Last time he traveled out of the country was about 10 years ago. At that time he traveled to the [facility]. Patient reports history of allergies 3 weeks ago for which he went to the urgent care. At that time he had bilateral ear infection; and post nasal drip. He was given antibiotics and steroids at that time. Chest x-ray was remarkable for focal pulmonary opacity with cavitary portion. Follow-up chest CT was also remarkable for large necrotic appearing mass within the right upper lobe and gas concerning for abscess. Hospital Course: 1. Sepsis secondary to a cavitary right upper lobe [id number] male who was recently treated for a sinus infection and completed 5 days of Augmentin presents with new fever and cough. He was found to have a cavitary lesion in his right upper lobe. He was started on Zosyn and vancomycin has significantly improved. Initially there is some concern that this could be TB however acid-fast staining was negative. He was removed from precautions and seen by infectious disease who felt that he was stable for discharge on 30 days of Augmentin and Bactrim. He did have a COVID test on admission to the hospital which did come back negative. We did discuss discharge and he expressed understanding of the risks and benefits of going home. Discussed with him that he does still spike some temperatures however he stated that he would rather go home and spend 1 more night in the hospital. He states that he is aware that if he does need to come back that he will come back. 2. Tobacco abuse-smokes cigarettes, counseled on cessation. He was given nicotine patch during admission. Patient Problems: Active and Suspected Problems (Last Updated 09/18/19 @ 06:[address] Lauri Bynum MD) Lung abscess (Acute) Pneumonia (Acute) Sepsis (Acute) Cavitary lesion of lung (Acute) - Physical Exam Vitals/I&O's: Vital Signs Temp Pulse Resp BP Pulse Ox 100.7 F H 95 18 127/73 H 97 09/19/19 13:47 09/19/19 13:47 09/19/19 13:47 09/19/19 13:47 09/19/19 13:47 Oxygen Delivery Method Room Air Weight: 213 lb 2.992 oz Body Mass Index (BMI) 28.9 Intake and Output for Last 24 Hours 09/17/19 09/18/19 09/19/19 23:59 23:59 23:59 Intake Total 4179.50 / 4554.50 2089.5 / 2089.5 Output Total 300 / 300 Balance 3879.50 / 4254.50 2089.5 / 2089.5 General: Alert, Oriented x3, Cooperative, No apparent distress HEENT: Atraumatic, PERRLA, EOMI, Normocephalic Oral: Moist Mucosa Neck: Supple, No JVD Lungs: Clear to auscultation, Normal air movement, No rhonchi, No wheeze, No rales, Diminished Cardiovascular: Regular rate, Regular Rhythm, Normal S1, Normal S2, No murmurs Abdomen: Soft, Non Tender, Non-Distended, No Hepato-splenomegaly Extremities: No edema, Capillary Refill Less than 3 Seconds Skin: No rashes, No breakdown Neurological: Neuro grossly intact, Sensory exam intact to light touch and pain Psych/Mental Status: Normal Affect, Appropriate Microbiology Past 72 Hours 09/18/19 06:45 Sputum, Expectorated/Coughed Gram Stain - Final 09/18/19 06:45 Sputum, Expectorated/Coughed Respiratory Culture - Preliminary Appears to be normal respiratory hans. Further studies to follow. 09/18/19 06:50 Urine, Random Streptococcus pneumoniae Antigen (M - Final 09/18/19 06:50 Urine, Random Legionella Antigen - Final Laboratory Results 09/18/19 06:45: Acid Fast Stain SEE PATHOLOGY REPORT 09/19/19 07:00: WBC 19.9 H, RBC 3.41 L, Hgb 10.3 L, Hct 31.7 L, MCV 93.0, MCH 30.2, MCHC 32.5, RDW Std Deviation 44.3 H, RDW Coeff of Rory 13.1, Plt Count 507 H, MPV 9.2, Immature Gran % (Auto) 0.800, Neut % (Auto) 77.7 H, Lymph % (Auto) 14.5 L, [place] % (Auto) 6.0, Eos % (Auto) 0.7, Baso % (Auto) 0.3, Absolute Neuts (auto) 15.4 H, Absolute Lymphs (auto) 2.87, Nucleated RBC % 0 09/19/19 07:00: Vancomycin Trough 17.2 H Current Medications Acetaminophen (Tylenol) 650 mg PO Q6H PRN PRN PRN Reason: Pain Score 1-10/Temp > 100.7 F Last Admin: 09/19/19 13:48 Dose: 650 mg Documented by: Albuterol Sulfate (Ventolin Aerosols) 2.5 mg INHALATION Q2H PRN PRN PRN Reason: Shortness of Breath/Wheezing Dextrose (D50w Syringe) 0 gm IV X1 PRN; Protocol PRN Reason: Hypoglycemia Enoxaparin Sodium (Lovenox) 40 mg SC DAILY [facility] Last Admin: 09/19/19 08:11 Dose: 40 mg Documented by: Glucagon () 1 mg IM .X1 PRN PRN Reason: Hypoglycemia Guaifenesin (Mucinex) 1,200 mg PO BID [facility] Last Admin: 09/19/19 08:11 Dose: 1,200 mg Documented by: Sodium Chloride () 250 mls @ 15 mls/hr IV .[id number] PRN PRN Reason: Saline Flush Last Infusion: 09/19/19 03:19 Dose: Infused Documented by: Sodium Chloride () 250 mls @ 15 mls/hr IV .[id number] PRN PRN Reason: Additional IVPB Infusion Vancomycin IV Pharmacy to Dose (1 ea/ Sodium Chloride) 500 mls @ 250 mls/hr IV X1 PRN; Protocol PRN Reason: Rx to Dose Piperacillin Sod/Tazobactam (Sod 3.375 gm/ Sodium Chloride) 50 mls @ 12.5 mls/hr IV Q8 [facility] Last Admin: 09/19/19 13:48 Dose: 12.5 mls/hr Documented by: Vancomycin HCl 1,250 mg/ (Sodium Chloride) 275 mls @ 167 mls/hr IV Q8H [facility] Last Admin: 09/19/19 15:52 Dose: 167 mls/hr Documented by: Melatonin (Melatonin) 3 mg PO QHS PRN PRN PRN Reason: INSOMNIA Nicotine (Nicoderm Cq (Pbkc)) 21 mg TRANSDERM. DAILY [facility] Last Admin: 09/19/19 08:11 Dose: 21 mg Documented by: Ondansetron HCl (Zofran) 4 mg IV Q8H PRN PRN PRN Reason: NAUSEA/VOMITING Sodium Chloride () 10 - 40 ml IV UD PRN PRN Reason: SALINE FLUSH Discharge Activity: Return to Normal Activity Call your doctor if you observe: Fever of 101 or Higher, Shortness of breath, Dizziness, Fainting spells, Swelling in the ankles, Chest pain, Increased palpitations (irregular heartbeat) Home Medications: Medications to take at Discharge Amoxicillin/Potassium Clav [Augmentin 875-125 Tablet] 1 ea PO BID #60 tab 09/19/19 Smz/Tmp Ds [Bactrim Ds] 1 tab PO BID #60 tab 09/19/19 Following Prescrptions Were Given to Patient: Amoxicillin/Potassium Clav [Augmentin 875-125 Tablet] 1 ea PO BID #60 tab Transmission Status: [id number] Smz/Tmp Ds [Bactrim Ds] 1 tab PO BID #60 tab Transmission Status: Re[facility] by [id number] Primary Care Physician: Vishnu Singh DO [Primary Care Provider] - Please follow up with your Primary Care Physician in: 3-5 days Please Follow Up With: Radhames Thacker MD When: 1-2 weeks Disposition: Home Minutes spent on discharge:: 35 Patient Condition:: Stable Medical Necessity - Tobacco Use Smoking Status: Current every day smoker Tobacco Use: Cigarettes Meaningful Use Info Meaningful Use Diagnoses (Choose all that apply): None applicable Inpatient E&M: 94858 Disch Hosp
[2019-09-19 17:05] VITALS: BP 129/71; PULSE 82; RESP 16; TEMP 37.3; O2SAT 97
[2019-09-20 09:58] LABS: Pathologist Review Reviewed
[2019-09-20 16:08] LABS: Cytoplasmic Ab (C-ANCA) <1:20 titer (Neg:<1:20)
[2019-09-20 16:37] LABS: Perinuclear Ab (P-ANCA) <1:20 titer (Neg:<1:20)
== END 2019-09-19 18:00 | disposition home or self-care (01) | DRG 871 ==
LOC: ED 09-18 01:41 → ICU 09-18 03:15
PROVIDERS: Internal Medicine Critical Care Medicine; Admitting Provider Hospitalist; Emergency Provider Emergency Medicine; PCP Family Medicine; Visit Provider Family Medicine
DX: A41.9 Sepsis, unspecified organism (principal); J18.8 Other pneumonia, unspecified organism; F12.90 Cannabis use, unspecified, uncomplicated; F17.210 Nicotine dependence, cigarettes, uncomplicated; F10.21 Alcohol dependence, in remission
CPT/HCPCS: 71046; 71260; 80048; 80202; 83036; 83605; 85025; 85610; 86256; 87015; 87040; 87070; 87116; 87205; 87206; 87449; 87635; 87641; 88108; 88312; 88313; 99284; 99406; G2023; J7030; J7040; J7050; Q9967; A4216; J0295; U0003

== ENCOUNTER → 2019-10-04 15:45 | Outpatient (CLI) | payer BC, SELFPAY ==
[2019-09-22 14:51] VITALS: BMI 28.9
[2019-10-04 16:29] LABS: Hematocrit 38.2 % (40-54); Hemoglobin 12.2 g/dL (13.0-16.5); Mean Corp Hgb Conc 31.9 g/dL (32-36); Mean Corpuscular Hgb 29.3 pg (27.0-32.0); Mean Corpuscular Volume 91.8 fL (80-94); Platelet Count 620 K/mm3 (150-450); RBC Distribution Width CV 13.9 % (11.6-14.6); RBC Distribution Width SD 47.2 fl (35.1-43.9); Red Blood Count 4.16 M/mm3 (4.6-6.2); White Blood Count 13.5 K/mm3 (4.4-11.0)
[2019-10-04 16:54] LABS: Anion Gap 6 (5-15); BUN 11 mg/dL (7-18); BUN/Creat Ratio 10.5 RATIO (10-20); Calcium,Total 8.7 mg/dL (8.5-10.1); Chloride 106 mmol/L (98-107); Creatinine, Serum 1.05 mg/dL (0.70-1.30); EST Glomerular Filtration Rate 82 mL/min (>60); Est Glom Filt Rate - Afr Amer 99 mL/min (>60); Glucose 84 mg/dL (74-106); Potassium 3.8 mmol/L (3.5-5.1); Sodium Level 136 mmol/L (136-145)
== END ==
PROVIDERS: PCP Family Medicine; Referring Provider Internal Medicine Infectious Disease; Visit Provider Internal Medicine Infectious Disease
DX: J85.2 Abscess of lung without pneumonia (principal)
CPT/HCPCS: 36415; 80048; 85027

== ENCOUNTER → 2019-11-09 16:01 | Outpatient (CLI) | payer BC, SELFPAY ==
[2019-09-22 14:51] VITALS: BMI 28.9
--- NOTE | 2019-11-09 16:05 | RAD_ITS ---
STUDY: X-RAY CHEST REASON FOR EXAM: Male, 44 years old. right upper lobe lung abscess found September 17 TECHNIQUE: 2 views COMPARISON: Prior chest radiograph of 09/17/[address] exam of 09/18/2019 FINDINGS: Small spiculated opacity remains in the right upper lobe with nearly complete resolution of the abscess from prior examination. The lungs are otherwise expanded with no residual atelectasis or pleural effusion. Normal size heart. Normal mediastinum and megan. Normal visualized pulmonary arteries. Normal visualized aortic arch and descending thoracic aorta. Normal visualized thoracic spine. Normal visualized ribs, clavicles, and shoulders. There is no demonstrated abnormality of the visualized soft tissue structures of the upper abdomen. RAD/Chest PA and Lateral IMPRESSION: Small residual spiculated opacity remains in the right upper lobe with nearly complete resolution of the abscess density from prior exam. No additional acute cardiopulmonary findings or changes. Negative for new consolidation, atelectasis or pleural effusion. Electronically Signed: Margaret Cornell MD at 16:22 EDT , Service support ,
== END ==
PROVIDERS: PCP Family Medicine; Referring Provider Internal Medicine Infectious Disease; Visit Provider Internal Medicine Infectious Disease
DX: J85.2 Abscess of lung without pneumonia (principal)
CPT/HCPCS: 71046

== ENCOUNTER 2021-01-14 05:52 | Emergency (ER) | payer BC, SELFPAY ==
[2021-01-14 05:53] VITALS: BP 165/95; PULSE 80; RESP 16; TEMP 36.4; O2SAT 100; BMI 28.3
--- NOTE | 2021-01-14 05:57 | RAD_ITS ---
STUDY: X-RAY - RIGHT SHOULDER REASON FOR EXAM: Male, 45 years old patient with right-sided shoulder pain. TECHNIQUE: 4 view(s) of the shoulder. COMPARISON: Radiographs of the right clavicle dated 01/14/2021. FINDINGS: Normal glenohumeral articulation. There is minimal widening of the AC joint suggesting a Type I acromioclavicular joint separation. Normal acromion. Normal humeral head and visualized proximal humerus. The soft tissue structures are unremarkable. There is no demonstrated fracture. There is interstitial thickening visible in the right lung. RAD/Shoulder min 2 Views IMPRESSION: Possible type I acromioclavicular joint separation. Electronically Signed: Kari Fish MD at 6:38 EDT , Service support ,
--- NOTE | 2021-01-14 05:57 | RAD_ITS ---
STUDY: X-RAY - RIGHT CLAVICLE REASON FOR EXAM: Male, 45 years old patient with right-sided clavicle pain. TECHNIQUE: 3 view(s) of the clavicle. COMPARISON: None. FINDINGS: Normal clavicle. Normal acromioclavicular articulation. Normal visualized sternoclavicular articulation. Normal visualized pulmonary apex. RAD/Clavicle IMPRESSION: No radiographic evidence for acute fracture. Electronically Signed: Kari Fish MD at 6:36 EDT , Service support ,
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
== END 2021-01-14 06:47 | disposition home or self-care (01) ==
PROVIDERS: Emergency Provider Student in an Organized Health Care Education/Training Program; PCP Family Medicine
DX: S43.101A Unspecified dislocation of right acromioclavicular joint, initial encounter (principal); S40.011A Contusion of right shoulder, initial encounter; V27.4XXA Motorcycle driver injured in collision with fixed or stationary object in traffic accident, initial encounter; Y93.55 Activity, bike riding; Y92.9 Unspecified place or not applicable; F17.210 Nicotine dependence, cigarettes, uncomplicated
CPT/HCPCS: 73000; 73030; 99282